=== PATIENT | male | born 1960 | race Caucasian/White ===

== ENCOUNTER 2023-11-28 17:47 | Observation (INO) | payer BC ==
[~2023-11-28] VITALS: Ht 198.1 cm; Wt 70.7 kg
[2023-11-28 19:42] LABS: Source, Urine Clean Catch
[2023-11-28 19:43] LABS: BASOPHILS ABSOLUTE AUTO 0.06 K/mm3 (0.00-0.23); BASOPHILS PERCENT AUTO 1 % (0-2); EOSINOPHILS ABSOLUTE AUTO 0.08 K/mm3 (0.00-0.68); EOSINOPHILS PERCENT AUTO 1 % (0-6); Hematocrit 47.5 % (37.0-53.0); Hemoglobin 16.3 g/dL (13.5-17.5); IMMATURE GRAN ABSOLUTE AUTO 0.03 K/mm3 (0.00-0.10); IMMATURE GRAN PERCENT AUTO 0 % (0-1); LYMPHOCYTES ABSOLUTE AUTO 1.69 K/mm3 (0.84-5.20); LYMPHOCYTES PERCENT AUTO 13 % (21-46); MONOCYTES PERCENT AUTO 9 % (4-13); Mean Corpuscular HGB Conc 34.3 g/dL (31.5-36.5); Mean Corpuscular Volume 93 fL (80-100); Mean Platelet Volume 9.4 fL (9.1-12.4); NEUTROPHILS ABSOLUTE AUTO 9.78 K/mm3 (1.96-9.15); NEUTROPHILS PERCENT AUTO 77 % (41-73); Platelet Count 214 K/mm3 (150-400); RDW Coefficient Variation 13.2 % (11.7-14.2); RDW Standard Deviation 45.6 fL (35.1-46.3); Red Blood Cell Count 5.09 M/mm3 (4.30-5.90); White Blood Cell Count 12.74 K/mm3 (4.00-11.30)
[2023-11-28 19:45] LABS: Appearance, Urine Clear (Clear); Bilirubin, Urine Neg (Neg); Blood, Urine 1+ (Neg); Color, Urine Yellow (P-Yellow); Glucose Qualitative, Urine Neg (Neg); Ketones, Urine Neg (Neg); Leukocyte Esterase, Urine Neg (Neg); Nitrite, Urine Neg (Neg); Protein, Urine Neg (Neg); Specific Gravity, Urine 1.015 (1.003-1.022); Urobilinogen, Urine NORM (Normal); pH, Urine 6.5 (5.0-8.0)
[2023-11-28 19:52] LABS: Amorphous Light (0-Heavy); Bacteria Not Seen /hpf; Red Blood Cells, Urine 0-2 /hpf (0-2); Squamous Epithelial Cells Not Seen /hpf (Few); White Blood Cells, Urine 0-2 /hpf (0-5)
[2023-11-28 20:08] LABS: Albumin, Blood 4.1 g/dL (3.4-5.0); Albumin/Globulin Ratio 1.4 (0.8-1.8); Bun/Creatinine Ratio 12.5 (12.0-20.0); Calcium, Blood 10.3 mg/dL (8.5-10.1); Creatinine, Blood 1.12 mg/dL (0.60-1.20); Globulin, Blood 2.9 g/dL (2.2-4.0); Potassium, Blood 3.7 mmol/L (3.5-5.5)
[2023-11-28] MEDS ORDERED: LORazepam 2 MG/ML 1ML Injection IV ONE (22:35)
[2023-11-28] MEDS ORDERED: HYDROmorphone HCl/Pf 1MG SYR IV ONE (22:35)
[2023-11-29] VITALS (10 sets, daily range): BP systolic 129–148; BP diastolic 73–90
[2023-11-29] MEDS ORDERED: Bupivacaine 0.5% Inj 50 ML Vial ONE (02:06)
[2023-11-29] MEDS ORDERED: Midazolam HCl 1MG / ML 2ML Vial ONE (02:07)
[2023-11-29] MEDS ORDERED: FentaNYL Citrate 50 MCG/ML 2 ML Injection ONE (02:07)
[2023-11-29] MEDS ORDERED: propofoL 20 ML IV ONE (02:09)
[2023-11-29] MEDS ORDERED: Rocuronium Bromide 10 MG/ML 5ML Injection IV ONE (02:10)
[2023-11-29] MEDS ORDERED: CeFAZolin Sodium 1000 mg Vial ONE ×2 (02:23→02:24)
[2023-11-29] MEDS ORDERED: Indocyanine Green 25 MG Vial IV ONE (02:30)
[2023-11-29] MEDS ORDERED: ePHEDrine Sulfate 50 MG/ML 1ML Injection ONE (02:42)
[2023-11-29] MEDS ORDERED: Ketorolac Tromethamine 30mg Vial ONE (03:11)
[2023-11-29] MEDS ORDERED: Sugammadex Sodium 200 MG/2ML SDV (100 MG/ML) ONE (03:11)
[2023-11-29] MEDS ORDERED: HYDROmorphone HCl/Pf 1MG SYR ONE (03:48)
[2023-11-29] MEDS ORDERED: Ondansetron HCl 2 MG / ML 2ML Vial IV PRN ×2 (04:25→06:10)
[2023-11-29] MEDS ORDERED: Labetalol HCL 5 MG/ML 4ML Injection (Single Dose) IV PRN (04:25)
[2023-11-29] MEDS ORDERED: ePHEDrine Sulfate 50 MG/ML 1ML Injection IV PRN (04:30)
[2023-11-29] MEDS ORDERED: Albuterol 2.5 MG/3 ML VIAL INH PRN (04:30)
[2023-11-29] MEDS ORDERED: FentaNYL Citrate 50 MCG/ML 2 ML Injection IV PRN ×4 (04:40→06:20)
[2023-11-29] MEDS ORDERED: HYDROmorphone HCl/Pf 1MG SYR IV PRN (04:50)
--- NOTE | 2023-11-29 05:59 | NUR ---
TRANSFER TO PCU Pt transfered to PCU from PACU at 0515 as surgical status. Pt is drowsy but easily arouses to verbali stimuli, oriented x4. Spo2 94% on room air, denies shortness of breath. Pt on tele, HR 70's, sinus rhythm, BP stable. Pt denies GI/ issues, pain 1/10 at this time. Small incision to lower abdomen, open to air, no drainage at this time. Pt denies significant medical history, no daily meds, no allergies. Denies ETOH or recreational drug use, recently quit smoking. Call light within reach.
[2023-11-29] MEDS ORDERED: NS 1,000 ML IV SCH (06:10)
[2023-11-29] MEDS ORDERED: HYDROcodone 5-APAP 325 TAB PO PRN ×2 (09:40→10:10)
[2023-11-29] MEDS ORDERED: Ketorolac Tromethamine 15mg Vial IV PRN (11:05)
--- NOTE | 2023-11-29 17:33 | NUR ---
SHIFT SUMMARY A&Ox4, CALLS [facility] NEEDS APPROPRIATELY. IND IN ROOM. BP STALBE, SINUS 70's, DENIES CP/PRESSURE. SpO2> 92% RA, DENIES SOB. ABB SURGICAL DRESSINGS C/D/I. PT C/O MIN PAIN WHEN RESTING, MOD PAIN WITH ACTIVITY, MANAGED PER EMAR. NO OTHER EVENTS, REPORT GIVEN TO LAYLA GUIDO
--- NOTE | 2023-11-29 17:53 | NUR ---
REPORT RECIEVED FROM [place] RICH. THIS RN TO TAKE OVER CARE UNTIL 1900.
--- NOTE | 2023-11-29 18:24 | NUR ---
UPDATE. THIS RN TO PT ROOM FOR ROUNDING. PT REPORTED "A LUMP THAT JUST POPPED UP." THIS RN ASSESSED AND NOTED A LUMP TO THE RIGHT OF PT'S GROIN. PT STATED "THAT IS WHERE I HAD THE HERNIA. I DID NOT NOTICE IT AFTER THE SURGERY THOUGH." THIS RN PALPATED LUMP WHILE PT WAS STANDING, PT REPORTED SLIGHT TENDERNESS JUST ABOVE LUMP. THIS RN NOTIFED CREATIVE LEAD AND DR PATRICIA. DR PATRICIA INFORMED THIS RN THAT HE IS NOT TOO CONCERNED PT IS VERY THIN THT HE WOULD SHOW ANY FLUIDS OR ANYTHING. NOC HOSPITALIST NOTIFED JUST TO BE AWARE OF PT'S CONCERN. HOSPITALIST TO PT ROOM FOR ASSESSMENT. PT SITTING IN BED. MD ASSESSED LUMP AND PALPATED IT, PT DID NOT REPORT TENDERNESS THIS TIME. LUMP LESS PROMINENT WHILE PT SITTING. HOSPITALIST INSTRUCTED PT TO ALERT STAFF IF THERE IS A INCREASE IN PAIN OR OTHER CONCERNS.
--- NOTE | 2023-11-29 21:01 | NUR ---
ASSUMPTION OF CARE RN ASSUMED CARE OF PATIENT AT 1900. PATIENT ALERT AND ORIENTED, DENIES NEEDS AT THIS TIME. PATIENT DOES ENDORSE SORENESS TO LOWER ABD AREA, CURRENTLY 07/19. SPO2 STABLE ON ROOM AIR. BP AND HR STABLE. PATIENT DENIES CHEST PAIN/PRESSURE. NO BM SINCE PROCEDURE. 3 LAP SITES CLEAN DRY AND INTACT, NO NOTABLE COMPLICATIONS.
[2023-11-30 03:46] LABS: BASOPHILS ABSOLUTE AUTO 0.03 K/mm3 (0.00-0.23); BASOPHILS PERCENT AUTO 0 % (0-2); EOSINOPHILS PERCENT AUTO 1 % (0-6); Hemoglobin 13.3 g/dL (13.5-17.5); IMMATURE GRAN ABSOLUTE AUTO 0.02 K/mm3 (0.00-0.10); IMMATURE GRAN PERCENT AUTO 0 % (0-1); LYMPHOCYTES ABSOLUTE AUTO 1.14 K/mm3 (0.84-5.20); LYMPHOCYTES PERCENT AUTO 16 % (21-46); MONOCYTES PERCENT AUTO 11 % (4-13); Mean Corpuscular HGB 31.7 pg (26.0-34.0); Mean Corpuscular HGB Conc 33.3 g/dL (31.5-36.5); Mean Corpuscular Volume 96 fL (80-100); Mean Platelet Volume 9.9 fL (9.1-12.4); NEUTROPHILS ABSOLUTE AUTO 4.94 K/mm3 (1.96-9.15); NEUTROPHILS PERCENT AUTO 70 % (41-73); Platelet Count 169 K/mm3 (150-400); RDW Coefficient Variation 13.3 % (11.7-14.2); RDW Standard Deviation 47.3 fL (35.1-46.3); Red Blood Cell Count 4.19 M/mm3 (4.30-5.90); White Blood Cell Count 7.03 K/mm3 (4.00-11.30)
[2023-11-30 03:51] VITALS: BP 124/81
[2023-11-30 04:13] LABS: Albumin/Globulin Ratio 1.3 (0.8-1.8); Bilirubin, Total 0.8 mg/dL (0.1-1.0); Bun/Creatinine Ratio 14.7 (12.0-20.0); Calcium, Blood 8.2 mg/dL (8.5-10.1); Creatinine, Blood 1.02 mg/dL (0.60-1.20); Globulin, Blood 2.3 g/dL (2.2-4.0); Potassium, Blood 4.1 mmol/L (3.5-5.5); Total Protein, Blood 5.3 g/dL (6.4-8.2)
--- NOTE | 2023-11-30 06:03 | NUR ---
SHIFT SUMMARY PATIENT REMAINS HEMODYNAMICALLY STABLE. PAIN TREATED WITH PRN PAIN MEDS. NO OTHER SIGNIFICANT CHANGES SINCE PREVIOUS NOTE.
--- NOTE | 2023-11-30 07:00 | NUR ---
ASSUME CARE: I have assumed care of this patient.
[2023-11-30 08:47] VITALS: BP 132/81
[2023-11-30] MEDS ORDERED: Acetaminophen 325 MG TABLET PO PRN (08:50)
[2023-11-30] MEDS ORDERED: MASOPHEN325 M3 PO (10:17)
[2023-11-30] MEDS ORDERED: HYDROCODONE-AC1 EA19 PO (10:18)
[2023-11-30 11:04] VITALS: BP 138/88
--- NOTE | 2023-11-30 11:06 | NUR ---
DISCHARGE: Pt provided discharge education, weight restrictions, written rx, and return precautions. He verbalized understanding and agreement. IV discontinued. He was taken out to his private vehicle via wheelchair.
== END 2023-11-30 11:08 | disposition home or self-care (01) ==
LOC: ER 17:47 → PCU 11-29 01:51 → SURS 11-29 01:51 → PCU 11-29 02:10
PROVIDERS: Student in an Organized Health Care Education/Training Program; Surgery; ADMIT Internal Medicine
PROC: 0YU64JZ Supplement Left Inguinal Region with Synthetic Substitute, Percutaneous Endoscopic Approach (ICD-10-PCS; principal; 2023-11-29 09:30)
PROC: 0YU70JZ Supplement Right Femoral Region with Synthetic Substitute, Open Approach (ICD-10-PCS; principal; 2023-11-29 09:30)
DX: K41.30 Unilateral femoral hernia, with obstruction, without gangrene, not specified as recurrent (principal); K40.30 Unilateral inguinal hernia, with obstruction, without gangrene, not specified as recurrent
CPT/HCPCS: 36415; 74177; 80053; 81001; 83690; 83880; 85025; 96374-59; 96375; 99285-25; A9270; C1781; J0690; J1170; J1885; J2060; J2250; J2704; J3010; J7030; Q9967

== ENCOUNTER → 2023-12-04 | Outpatient (CLI) | payer BC ==
[~2023-12-04] MED LIST: HYDROCODONE-AC1 EA19 PO; MASOPHEN325 M3 PO
[2023-12-04 20:01] LABS: CHOL/HDL RATIO 3.1; Cholesterol 167 mg/dL (50-200); Free Thyroxine 1.09 ng/dL (0.70-1.60); HDL Cholesterol 54 mg/dL (>39); LDL/HDL RATIO 1.8; Low Density Lipoprotein Chol 98 mg/dL (0-110); Triglycerides 77 mg/dL (30-160); Very Low Density Lipoprot Chol 15 mg/dL (6-32)
[2023-12-07 08:48] LABS: HIV 1,2 COMBO ANTIGEN/ANTIBODY Negative (Negative)
[2023-12-07 12:01] LABS: HEPATITIS C AB CIA INTERP Negative (Negative); HEPATITIS C ANTIBODY CIA INDEX 0.04 IV
== END ==
LOC: LAB 17:55 → LAB SHORT 17:55
PROVIDERS: Nurse Practitioner Family
DX: Z13.6 Encounter for screening for cardiovascular disorders (principal); Z11.59 Encounter for screening for other viral diseases; Z12.5 Encounter for screening for malignant neoplasm of prostate; R53.83 Other fatigue; R63.4 Abnormal weight loss
CPT/HCPCS: 80061; 83036; 84439; 84443; 86803; 87389; G0103